=== PATIENT | female | born 1970 | race Hispanic/Latino ===

== ENCOUNTER 2017-09-27 11:20 | Emergency (ER) | payer SELFPAY ==
[2017-09-27] MEDS ORDERED: Morphine 4 MG/ML VIAL ONE (12:09)
[2017-09-27] MEDS ORDERED: methylPREDNISolone Sod Succ/PF 125 MG/2 ML VIAL ONE (12:10)
[2017-09-27] MEDS ORDERED: Ketorolac Tromethamine 30 MG/ML VIAL ONE (12:10)
[2017-09-27] MEDS ORDERED: carBAMazepine 100 mg Chewable Tablet PO ONE (13:15)
--- NOTE | 2017-09-27 14:19 | MRI ---
BRAIN MRI WITH AND WITHOUT IV CONTRAST: Date: 09/27/17 HISTORY: 47-year-old female with history of headaches, with past medical history of trigeminal neuralgia which was treated with surgery. FINDINGS: There is no focal mass or midline shift. No intra or extra-axial hemorrhage. No abnormal contrast enh ancement. No evidence for an acute infarct. IMPRESSION: No evidence for mass or bleed. No acute infarct. No abnormal contrast enhancement. No evidence for ot her significant acute process. POS: [facility]
== END 2017-09-27 14:44 | disposition home or self-care (01) ==
LOC: ERS 11:20
DX: G50.0 Trigeminal neuralgia (principal); I10 Essential (primary) hypertension; Z79.891 Long term (current) use of opiate analgesic
CPT/HCPCS: 70553; 96374; 96375; J1885; J2270; J2930